=== PATIENT | female | born 1970 | race Two or more races ===

== ENCOUNTER 2018-02-15 10:44 | Outpatient (CLI) | payer OTHER | END 2018-02-15 11:08 | disposition home or self-care (01) | LOC: RAD 501 10:44 | DX: M51.36 Other intervertebral disc degeneration, lumbar region (principal); Z98.1 Arthrodesis status ==

== ENCOUNTER 2022-10-14 11:45 | Inpatient (IN) | payer OTHER ==
[~2022-10-14] VITALS: Ht 160 cm; Wt 86.2 kg
[2022-10-14] MEDS ORDERED: BACLOFEN20 MG PO (14:28)
[2022-10-14] MEDS ORDERED: CYMBALTA30 MG PO (14:29)
[2022-10-14] MEDS ORDERED: GABAPEN PO (14:29)
[2022-10-14] MEDS ORDERED: TROSPIUM CHLORI60 MG PO (14:29)
[2022-10-14] MEDS ORDERED: TRILEPTAL300 MG PO (14:30)
[2022-10-14] MEDS ORDERED: MAXALT10 MG PO (14:31)
[2022-10-14] MEDS ORDERED: VITAMIN D PO (14:32)
[2022-10-14] MEDS ORDERED: [UNRECOGNIZED DRUG - OTHER] PO (14:32)
[2022-10-14] MEDS ORDERED: MYRBETRIQ50 MG PO (15:37)
[2022-10-19] MEDS ORDERED: PROPRANOLOL HCL40 MG (08:16)
[2022-10-19] MEDS ORDERED: FLONASE16 GM (08:16)
[2022-10-19] MEDS ORDERED: CYCLOBENZAPRINE10 MG (08:17)
[2022-10-19] MEDS ORDERED: GABAPENTIN800 M1 (08:17)
[2022-10-19] MEDS ORDERED: VITAMIN D310 MC4 (08:18)
[2022-10-19] MEDS ORDERED: MEDROLPACK PO (10:29)
[2022-10-19] MEDS ORDERED: COLACE100 MG PO (10:29)
[2022-10-19] MEDS ORDERED: DICLOFENAC POTA50 MG PO (10:29)
== END 2022-10-20 14:50 | disposition home or self-care (01) | DRG 518 ==
LOC: O/R 10-19 05:38 → SURG 10-19 05:38
PROVIDERS: ADMIT Orthopaedic Surgery Orthopaedic Surgery of the Spine; ATTEND Orthopaedic Surgery Orthopaedic Surgery of the Spine
PROC: 0RR30JZ Replacement of Cervical Vertebral Disc with Synthetic Substitute, Open Approach (ICD-10-PCS; principal; 2022-10-19 10:35)
DX: M50.022 Cervical disc disorder at C5-C6 level with myelopathy (principal); M48.02 Spinal stenosis, cervical region

== ENCOUNTER 2023-07-07 08:15 | Inpatient (IN) | payer OTHER ==
[~2023-07-07] VITALS: Ht 160 cm; Wt 81.6 kg
[~2023-07-07 08:15] MED LIST: BACLOFEN20 MG PO; COLACE100 MG PO; CYCLOBENZAPRINE10 MG; CYMBALTA30 MG PO; DICLOFENAC POTA50 MG PO; FLONASE16 GM; GABAPEN PO; GABAPENTIN800 M1; MAXALT10 MG PO; MEDROLPACK PO; MYRBETRIQ50 MG PO; PROPRANOLOL HCL40 MG; TRILEPTAL300 MG PO; TROSPIUM CHLORI60 MG PO; VITAMIN D PO; VITAMIN D310 MC4; [UNRECOGNIZED DRUG - OTHER] PO
[2023-07-07] MEDS ORDERED: INDERAL LA80 MG PO (09:52)
[2023-07-07] MEDS ORDERED: CIPRO500 MG PO (13:50)
[2023-07-13] MEDS ORDERED: PERCOCET 5-3251 EACH PO (14:24)
[2023-07-13] MEDS ORDERED: CLEOCIN HCL300 MG PO (14:24)
[2023-07-13] MEDS ORDERED: GABAPENTIN100 M2 PO (14:24)
[2023-07-13] MEDS ORDERED: NEURONTIN800 MG PO (14:24)
[2023-07-13] MEDS ORDERED: ZOFRAN8 MG PO (14:24)
[2023-07-13] MEDS ORDERED: COLACE100 MG PO (14:24)
[2023-07-13] MEDS ORDERED: MEDROLPACK PO (14:24)
[2023-07-13] MEDS ORDERED: BENADRYL ALLERG25 MG PO (14:27)
[2023-07-14 06:49] LABS: HEMATOCRIT 35.9 % (36.0-45.00); HEMOGLOBIN 12.1 g/dL (12.0-15.00); MEAN CELL VOLUME 94.1 fL (80.00-100.00); MEAN CORPUSCULAR HEMOGLOBIN 31.7 pg (27.00-32.0); MEAN CORPUSCULAR HGB CONC 33.7 g/dl (32.0-36.0); PLATELET COUNT 316 K/uL (150-450); RED BLOOD COUNT 3.82 M/uL (4.00-6.00); RED CELL DISTRIBUTION WIDTH 15.8 % (11.5-14.5)
[2023-07-14 07:11] LABS: CALCIUM 8.8 mg/dL (8.5-10.1); CREATININE SERUM 0.76 mg/dL (0.55-1.02); GFR 80.23; POTASSIUM 4.31 mEq/L (3.5-5.1)
== END 2023-07-15 11:40 | disposition home or self-care (01) | DRG 455 ==
LOC: SURG 07-13 08:15 → O/R 07-13 11:54 → SURG 07-13 14:00 → O/R 07-13 15:42 → SURG 07-13 18:46
PROVIDERS: ADMIT Orthopaedic Surgery Orthopaedic Surgery of the Spine; ATTEND Orthopaedic Surgery Orthopaedic Surgery of the Spine
PROC: 0SG30K1 Fusion of Lumbosacral Joint with Nonautologous Tissue Substitute, Posterior Approach, Posterior Column, Open Approach (ICD-10-PCS; 2023-07-13)
PROC: 0QB30ZZ Excision of Left Pelvic Bone, Open Approach (ICD-10-PCS; 2023-07-13)
PROC: 0ST40ZZ Resection of Lumbosacral Disc, Open Approach (ICD-10-PCS; 2023-07-13)
PROC: 0QP005Z Removal of External Fixation Device from Lumbar Vertebra, Open Approach (ICD-10-PCS; 2023-07-13)
PROC: 07DR0ZZ Extraction of Iliac Bone Marrow, Open Approach (ICD-10-PCS; 2023-07-13)
PROC: 4A1104G Monitoring of Peripheral Nervous Electrical Activity, Intraoperative, Open Approach (ICD-10-PCS; 2023-07-13)
PROC: 4A12X4Z Monitoring of Cardiac Electrical Activity, External Approach (ICD-10-PCS; 2023-07-13)
PROC: 3E0F7SF Introduction of Other Gas into Respiratory Tract, Via Natural or Artificial Opening (ICD-10-PCS; 2023-07-13)
PROC: XRGD0R7 Fusion of Lumbosacral Joint using Custom-Made Anatomically Designed Interbody Fusion Device, Open Approach, New Technology Group 7 (ICD-10-PCS; principal; 2023-07-13 14:00)
DX: M43.17 Spondylolisthesis, lumbosacral region (principal); M48.07 Spinal stenosis, lumbosacral region; M51.17 Intervertebral disc disorders with radiculopathy, lumbosacral region; M79.7 Fibromyalgia